=== PATIENT | male | born 1975 ===

== ENCOUNTER → 2021-12-05 | Outpatient (CLI) | payer BC ==
--- NOTE | 2021-12-05 16:00 | Diagnostic Imaging Report ---
PROCEDURE: CT abdomen and pelvis without contrast. TECHNIQUE: Multiple contiguous axial images were obtained through the abdomen and pelvis without the use of intravenous contrast. Auto Exposure Controls were utilized during the CT exam to meet ALARA standards for radiation dose reduction. INDICATION: Right flank pain, unexplained weight loss. No priors. FINDINGS: There are no radiopaque urinary tract calculi, there is no hydroureteronephrosis. The unobstructed kidneys, ureters and urinary bladder appeared unremarkable at this unenhanced exam. The appendix is visualized and normal. There is no small or large bowel obstruction. Liver, gallbladder, bile ducts, spleen, adrenals and pancreas unremarkable. No ascites, abscess hematoma or acute fluid collection. The aorta nonaneurysmal. There is no lymphadenopathy. No focal inflammatory process. No mass identified. No acute bony pathology. The lung bases nonacute. IMPRESSION: Unremarkable noncontrasted abdominal pelvic CT. Dictated by: Dictated on workstation # [id number]
== END ==
LOC: RAD 13:45
PROVIDERS: ATTEND Nurse Practitioner Family
DX: Z02.89 Encounter for other administrative examinations (principal); Z04.2 Encounter for examination and observation following work accident; J44.9 Chronic obstructive pulmonary disease, unspecified; M54.41 Lumbago with sciatica, right side; R20.1 Hypoesthesia of skin; R63.4 Abnormal weight loss; R19.09 Other intra-abdominal and pelvic swelling, mass and lump; R10.9 Unspecified abdominal pain; Z71.6 Tobacco abuse counseling; Z72.0 Tobacco use
CPT/HCPCS: 74176